=== PATIENT | male | born 1995 | race Caucasian/White ===

== ENCOUNTER 2019-09-19 20:49 | Observation (INO) | payer OTHER ==
[~2019-09-19] VITALS: Ht 170.2 cm; Wt 80.4 kg
[2019-09-19] MEDS ORDERED: ONDANSETRON 2MG/ML, 2ML ONE ×2 (21:12→23:54)
[2019-09-19] MEDS ORDERED: BENZOCAINE AEROSOL SPRAY 20%, 60ML ONE (21:13)
[2019-09-19] MEDS ORDERED: PHENYLEPHRINE NASAL 1%, 15ML SPRAY ONE (21:16)
[2019-09-19] MEDS ORDERED: SODIUM CHLORIDE 0.9% 1,000ML IVBOLUS ONE (21:30)
[2019-09-19] MEDS ORDERED: PHENYLEPHRINE NASAL 0.25%, 15ML SPRAY NAS ONE (21:30)
[2019-09-19] MEDS ORDERED: PLEASE ENTER ALLERGIES MC SCH (21:30)
[2019-09-19] MEDS ORDERED: ONDANSETRON 2MG/ML, 2ML IVPush ONE (21:30)
[2019-09-19] MEDS ORDERED: SODIUM CHLORIDE FLUSH 10ML SYR IVF ONE (21:30)
--- NOTE | 2019-09-19 21:40 | NUR ---
PT STATES NO CHANGE IN BLEEDING. CHILDREN GIVEN SNACKS AND JUICE PER REQUEST. PT AND FAMILY DENY FURTHER NEEDS AT THIS TIME.
[2019-09-19 21:45] LABS: ALANINE AMINOTRANSFERASE 13 U/L (12-78); ALBUMIN 3.8 g/dL (3.4-5.0); ANION GAP 6 mmol/L (5-15); BASOPHILS # (AUTO) 0.04 x10^3/uL (0-0.1); BASOPHILS % (AUTO) 0 % (0-1); CHLORIDE 104 mmol/L (98-107); EOSINOPHILS # (AUTO) 0.26 x10^3/uL (0-0.4); EOSINOPHILS % (AUTO) 3 % (1-7); LYMPHOCYTES # (AUTO) 2.64 x10^3/uL (1-3.4); LYMPHOCYTES % (AUTO) 25 % (22-44); MD NO; MEAN CORPUSCULAR HEMOGLOBIN 30.7 pg (27.5-34.5); MEAN CORPUSCULAR HGB CONC 34.2 g/dL (33.2-36.2); MEAN CORPUSCULAR VOLUME 89.9 fL (81-97); MEAN PLATELET VOLUME 7.7 fL (7.4-10.4); MONOCYTES # (AUTO) 1.08 x10^3/uL (0.2-0.8); MONOCYTES % (AUTO) 10 % (2-9); NEUTROPHILS # (AUTO) 6.51 x10^3/uL (1.8-6.8); NEUTROPHILS % (AUTO) 62 % (42-75); PLATELET COUNT 295 x10^3/uL (130-400); RED BLOOD COUNT 5.22 x10^6/uL (4.38-5.82); RED CELL DISTRIBUTION WIDTH 12.6 % (9.4-14.8)
[2019-09-19 21:47] LABS: CREATININE 1.14 mg/dL (0.7-1.3)
[2019-09-19 21:48] LABS: ALKALINE PHOSPHATASE 67 U/L (45-117); BILIRUBIN,TOTAL 0.4 mg/dL (0.2-1.0); TOTAL PROTEIN 8.2 g/dL (6.4-8.2)
--- NOTE | 2019-09-19 22:18 | NUR ---
PT STATES NO CHANGE IN BLEEDING. MD ON PHONE WITH ENT AT THIS TIME.
--- NOTE | 2019-09-19 22:44 | NUR ---
REPORT TO ROSALBA PICKLING MACHINE OPERATOR. PT LEAVING FOR OR NOW
[2019-09-19] MEDS ORDERED: MIDAZOLAM 1 MG/ML, 2ML ONE (23:05)
[2019-09-19] MEDS ORDERED: FENTANYL PF 100 MCG/2ML ONE (23:05)
[2019-09-19 23:12] LABS: INTERNATIONAL NORMALIZED RATIO 1.01 (0.93-1.1); PROTHROMBIN TIME 10.7 Seconds (9.6-11.5)
[2019-09-19] MEDS ORDERED: OXYMETAZOLINE NASAL SPRAY 0.05%, 15ML ONE (23:18)
[2019-09-19] MEDS ORDERED: THROMBIN 5,000 UNIT VIAL TP ONE ×2 (23:22→23:39)
[2019-09-19] MEDS ORDERED: OXYMETAZOLINE NASAL SPRAY 0.05%,30ML NAS ONE (23:40)
[2019-09-19] MEDS ORDERED: SUCCINYLCHOLINE 20 MG/ML, 10ML ONE (23:54)
[2019-09-19] MEDS ORDERED: ROCURONIUM 10MG/ML,5ML ONE (23:54)
[2019-09-19] MEDS ORDERED: GLYCOPYRROLATE 0.2MG/1ML, 5ML ONE (23:54)
[2019-09-19] MEDS ORDERED: SUGAMMADEX 200 MG/2 ML IVPush ONE (23:54)
[2019-09-19] MEDS ORDERED: CEFAZOLIN 1,000 MG ONE (23:54)
[2019-09-19] MEDS ORDERED: DEXAMETHASONE 4 MG/ML, 1ML ONE (23:54)
[2019-09-19] MEDS ORDERED: NEOSTIGMINE 1 MG/ML, 10ML ONE (23:54)
[2019-09-19] MEDS ORDERED: PROPOFOL 10 MG/ML, 20ML ONE (23:54)
[2019-09-20] MEDS ORDERED: MEPERIDINE/PF 25MG/ML,1ML IVPush PRN
[2019-09-20] MEDS ORDERED: METOPROLOL 1 MG/ML, 5ML IV PRN
[2019-09-20] MEDS ORDERED: FENTANYL PF 100 MCG/2ML IV PRN
[2019-09-20] MEDS ORDERED: OXYcodone 5 MG/5 ML ORAL.SOL UDC PO PRN
[2019-09-20] MEDS ORDERED: ALBUTEROL/IPRATROPIUM 2.5MG/0.5MG, 3 ML NPPB PRN
[2019-09-20] MEDS ORDERED: PROMETHAZINE 25 MG/ML, 1ML IV PRN
[2019-09-20] MEDS ORDERED: hydrALAzine 20 MG/ML, 1ML IV PRN
[2019-09-20] MEDS ORDERED: MIDAZOLAM 1 MG/ML, 2ML IV PRN
[2019-09-20] MEDS ORDERED: MEPERIDINE/PF 25MG/ML,1ML ONE (00:10)
[2019-09-20] MEDS ORDERED: HYDROmorphone 2 MG/ML, 1ML IVPush PRN ×2 (01:00)
[2019-09-20] MEDS ORDERED: PROMETHAZINE 25 MG/ML, 1ML IM PRN (01:00)
[2019-09-20] MEDS ORDERED: ONDANSETRON 2MG/ML, 2ML IVPush PRN (01:00)
[2019-09-20] MEDS ORDERED: ACETAMINOPHEN 325 MG TABLET PO PRN (01:00)
[2019-09-20] MEDS: LACTATED RINGERS 1,000 ML IV SCH ×2 (01:44→09:00)
[2019-09-20 02:21] VITALS: BP 150/74
[2019-09-20 06:55] LABS: BASOPHILS # (AUTO) 0.02 x10^3/uL (0-0.1); BASOPHILS % (AUTO) 0 % (0-1); EOSINOPHILS % (AUTO) 0 % (1-7); LYMPHOCYTES # (AUTO) 0.62 x10^3/uL (1-3.4); LYMPHOCYTES % (AUTO) 9 % (22-44); MD NO; MEAN CORPUSCULAR HEMOGLOBIN 30.8 pg (27.5-34.5); MEAN CORPUSCULAR VOLUME 90.4 fL (81-97); MEAN PLATELET VOLUME 7.3 fL (7.4-10.4); MONOCYTES # (AUTO) 0.08 x10^3/uL (0.2-0.8); MONOCYTES % (AUTO) 1 % (2-9); NEUTROPHILS # (AUTO) 6.18 x10^3/uL (1.8-6.8); NEUTROPHILS % (AUTO) 90 % (42-75); PLATELET COUNT 234 x10^3/uL (130-400); RED CELL DISTRIBUTION WIDTH 12.6 % (9.4-14.8)
[2019-09-20 07:03] LABS: ANION GAP 4 mmol/L (5-15); CALCIUM 8.5 mg/dL (8.5-10.1); CHLORIDE 105 mmol/L (98-107); CREATININE 1.04 mg/dL (0.7-1.3)
[2019-09-20 10:21] LABS: TROPONIN I < 0.015 ng/mL (0.000-0.045)
== END 2019-09-20 18:52 | disposition home or self-care (01) ==
LOC: ED 22:32 → ICU 22:39 → EDIP 22:39 → UNDOADMOB 22:39 → EDIP 09-20 01:00 → ICU 09-20 01:00
PROVIDERS: ADMIT Otolaryngology; ATTEND Internal Medicine
DX: J95.830 Postprocedural hemorrhage of a respiratory system organ or structure following a respiratory system procedure (principal); D62 Acute posthemorrhagic anemia; R00.0 Tachycardia, unspecified; R07.89 Other chest pain; D72.829 Elevated white blood cell count, unspecified; R73.9 Hyperglycemia, unspecified; Y83.6 Removal of other organ (partial) (total) as the cause of abnormal reaction of the patient, or of later complication, without mention of misadventure at the time of the procedure
CPT/HCPCS: 36415; 42960; 80048; 80053; 84484; 85014; 85018; 85025; 85610; 86850; 86900; 87081; 93005; 96374; G0378; J0330; J0690; J1100; J2250; J2405; J2704; J3010; J7030; J7120; J2710